=== PATIENT | female | born 1950 | race Two or more races ===

== ENCOUNTER → 2023-04-25 07:32 | Outpatient (REF) | payer MEDICARE, OTHER, SELFPAY | LOC: EMG 07:32 | PROVIDERS: ATTENDING PHYSICIAN Family Medicine; FAMILY PHYSICIAN Family Medicine | DX: G60.8 Other hereditary and idiopathic neuropathies (principal); R20.0 Anesthesia of skin; R20.9 Unspecified disturbances of skin sensation | CPT/HCPCS: 95886; 95913 ==

== ENCOUNTER → 2023-11-14 07:52 | Outpatient (REF) | payer MEDICARE, OTHER, SELFPAY | LOC: HWWDC 07:52 | PROVIDERS: ATTENDING PHYSICIAN Family Medicine | DX: Z12.31 Encounter for screening mammogram for malignant neoplasm of breast (principal); M25.562 Pain in left knee | CPT/HCPCS: 73564 ==